=== PATIENT | female | born 1985 | race Caucasian/White ===

== ENCOUNTER 2016-11-10 22:44 | Emergency (ER) | payer SELFPAY ==
[~2016-11-10] VITALS: Ht 172.7 cm; Wt 89.0 kg
[2016-11-10 22:46] VITALS: BP 142/88; PULSE 125; RESP 18; TEMP 100.8; O2SAT 94
[2016-11-10] MEDS ORDERED: SODIUM CHLOR 0.9% 1000 ML INJ 1,000 ML IV ONE ×2 (23:16)
[2016-11-10] MEDS ORDERED: SODIUM CHLOR 0.9% 1000 ML INJ 700 ML IV ONE (23:16)
[2016-11-10] MEDS ORDERED: ACETAMINOPHEN 325 MG TAB PO ONE (23:30)
[2016-11-10 23:54] LABS: AUTOMATED NEUTROPHIL # 8.6 TH/MM3 (1.8-7.7); BASOPHIL % 0.3 % (0.0-2.0); EOSINOPHIL % 0.1 % (0.0-4.0); HEMATOCRIT 36.5 % (35.0-46.0); HEMO FLAGS DIFF FINAL; LYMPH % 2.3 % (9.0-44.0); LYMPHOCYTE # 0.2 TH/MM3 (1.0-4.8); MEAN CORPUSCULAR HEMOGLOBIN 28.2 PG (27.0-34.0); MEAN CORPUSCULAR HGB CONC 34.8 % (32.0-36.0); MONO % 3.9 % (0.0-8.0); NEUT % 93.4 % (16.0-70.0); PLATELET COUNT 268 TH/MM3 (150-450); RED CELL DISTRIBUTION WIDTH 13.5 % (11.6-17.2); WHITE BLOOD COUNT 9.3 TH/MM3 (4.0-11.0)
[2016-11-11] MEDS ORDERED: HYDROmorphone HCL PF 1 MG/ML VIAL IV PUSH ONE
[2016-11-11] MEDS ORDERED: ONDANSETRON HCL 4 MG/2 ML VIAL IV PUSH ONE
[2016-11-11] MEDS ORDERED: OSELTAMIVIR PHOSPHATE 75 MG CAP PO ONE (00:15)
[2016-11-11 00:27] LABS: ALT (GPT) 23 U/L (10-53); ANION GAP 11 MEQ/L (5-15); AST (GOT) 16 U/L (15-37); BICARBONATE 22.2 MEQ/L (21.0-32.0); BLOOD UREA NITROGEN 10 MG/DL (7-18); CHLORIDE 105 MEQ/L (98-107); GLOMERULAR FILTRATION RATE 97 ML/MIN (>89); POTASSIUM 3.7 MEQ/L (3.5-5.1); SODIUM (NA) 138 MEQ/L (136-145)
--- NOTE | 2016-11-11 00:27 | RADRPT ---
EXAM DATE/TIME: 11/10/2016 23:25 [facility] COMPARISON: No previous studies available for comparison. INDICATIONS : Fever, cough. MEDICAL HISTORY : None. SURGICAL HISTORY : None. ENCOUNTER: Initial ACUITY: 3 days PAIN SCORE: 0/10 LOCATION: Bilateral chest FINDINGS: A single view of the chest demonstrates the lungs to be symmetrically aerated without evidence of mas s, infiltrate or effusion. The cardiomediastinal contours are unremarkable. Osseous structures are intact. CONCLUSION: Normal examination for a patient of this age. Joe Farias MD on November 11, 2016 at 0:26 Board Certified Radiologist. This report was verified electronically.
[2016-11-11 00:29] LABS: ALKALINE PHOSPHATASE 71 U/L (45-117); TOTAL BILIRUBIN ADULT 0.4 MG/DL (0.2-1.0)
[2016-11-11] MEDS ORDERED: OSEL75 PO (00:39)
[2016-11-11] MEDS ORDERED: ZOFR4TAB3 SL (00:39)
--- NOTE | 2016-11-11 00:40 | PD ---
HPI Chief Complaint: Cold / Flu Symptoms Time Seen by Provider: 23:15 Travel History International Travel<30 days: No Contact w/Intl Traveler<30days: No Traveled to known affect area: No History of Present Illness HPI 31-year-old female arrives to the ER complaining of generalized malaise, generalized myalgias and arthralgias for about 1 day. She has vomited 3-4 times. Oral intake is decreased. She reports her daughter is sick at home with similar symptoms. She has had about 5 episodes of diarrhea nonbloody. [facility] Past Medical History Immunizations Current: Yes Influenza Vaccination: No ?: Unknown LMP: 10/11/2016 Past Surgical History Cholecystectomy: Yes Social History Alcohol Use: Yes (RARELY) Tobacco Use: No Substance Use: No Allergies-Medications (Allergen,Severity, Reaction): Coded Allergies: No Known Allergies (Unverified , 11/10/16) Reported Meds & Prescriptions Reported Meds & Active Scripts Active Zofran Odt (Ondansetron Odt) 4 Mg Tab 4 Mg SL Q8HR PRN Tamiflu (Oseltamivir Phosphate) 75 Mg Cap 75 Mg PO BID 7 Days Review of Systems Except as stated in HPI: all other systems reviewed are Neg Physical Exam Narrative GENERAL: 31-year-old female, well-nourished well-developed SKIN: Warm and dry. HEAD: Atraumatic. Normocephalic. EYES: Pupils equal and round. No scleral icterus. No injection or drainage. ENT: No nasal bleeding or discharge. Mucous membranes pink and moist. NECK: Trachea midline. No JVD. CARDIOVASCULAR: Tachycardia. Regular rhythm. RESPIRATORY: No accessory muscle use. Clear to auscultation. Breath sounds equal bilaterally. GASTROINTESTINAL: Abdomen soft, non-tender, nondistended. Hepatic and splenic margins not palpable. MUSCULOSKELETAL: No obvious deformities. No clubbing. No cyanosis. No edema. NEUROLOGICAL: Awake and alert. No obvious cranial nerve deficits. Motor grossly within normal limits. Normal speech. PSYCHIATRIC: Appropriate mood and affect; insight and judgment normal. Data Data Last Documented VS Vital Signs Date Time Temp Pulse Resp B/P Pulse Ox O2 Delivery O2 Flow Rate FiO2 11/10/16 22:46 100.8 125 18 142/88 94 Vital signs observed Orders Complete Blood Count With Diff (11/10/16 23:16) Comprehensive Metabolic Panel (11/10/16 23:16) Lactic Acid Sepsis Protocol (11/10/16 23:16) Urinalysis - C+S If Indicated (11/10/16 23:16) Influenzae A/B Antigen (11/10/16 23:16) Blood Culture (11/10/16 23:16) Chest, Single Ap (11/10/16 23:16) Blood Glucose (11/10/16 23:16) Ecg Monitoring (11/10/16 23:16) Iv Access Insert/Monitor (11/10/16 23:16) Oximetry (11/10/16 23:16) Oxygen Administration (11/10/16 23:16) Acetaminophen (Tylenol) (11/10/16 23:30) Sodium Chlor 0.9% 1000 Ml Inj (Ns 1000 M (11/10/16 23:16) Sodium Chlor 0.9% 1000 Ml Inj (Ns 1000 M (11/10/16 23:16) Sodium Chlor 0.9% 1000 Ml Inj (Ns 1000 M (11/10/16 23:16) Ed Poc Ultrasound (11/10/16 ) Hydromorphone Pf Inj (Dilaudid Pf Inj) (11/11/16 00:00) Ondansetron Inj (Zofran Inj) (11/11/16 00:00) Oseltamivir (Tamiflu) (11/11/16 00:15) Urine Culture (11/11/16 00:40) Labs Laboratory Tests Test 11/10/16 11/10/16 11/11/16 23:35 23:40 00:40 White Blood Count 9.3 TH/MM3 Red Blood Count 4.50 MIL/MM3 Hemoglobin 12.7 GM/DL Hematocrit 36.5 % Mean Corpuscular Volume 81.0 FL Mean Corpuscular Hemoglobin 28.2 PG Mean Corpuscular Hemoglobin 34.8 % Concent Red Cell Distribution Width 13.5 % Platelet Count 268 TH/MM3 Mean Platelet Volume 8.1 FL Neutrophils (%) (Auto) 93.4 % Lymphocytes (%) (Auto) 2.3 % Monocytes (%) (Auto) 3.9 % Eosinophils (%) (Auto) 0.1 % Basophils (%) (Auto) 0.3 % Neutrophils # (Auto) 8.6 TH/MM3 Lymphocytes # (Auto) 0.2 TH/MM3 Monocytes # (Auto) 0.4 TH/MM3 Eosinophils # (Auto) 0.0 TH/MM3 Basophils # (Auto) 0.0 TH/MM3 CBC Comment DIFF FINAL Differential Comment Sodium Level 138 MEQ/L Potassium Level 3.7 MEQ/L Chloride Level 105 MEQ/L Carbon Dioxide Level 22.2 MEQ/L Anion Gap 11 MEQ/L Blood Urea Nitrogen 10 MG/DL Creatinine 0.70 MG/DL Estimat Glomerular Filtration 97 ML/MIN Rate Random Glucose 119 MG/DL Calcium Level 8.6 MG/DL Total Bilirubin 0.4 MG/DL Aspartate Amino Transf 16 U/L (AST/SGOT) Alanine Aminotransferase 23 U/L (ALT/SGPT) Alkaline Phosphatase 71 U/L Total Protein 7.9 GM/DL Albumin 3.8 GM/DL Lactic Acid Level 1.3 mmol/L Urine Color YELLOW Urine Turbidity CLEAR Urine pH 5.5 Urine Specific [place] 1.021 Urine Protein NEG mg/dL Urine Glucose (UA) NEG mg/dL Urine Ketones NEG mg/dL Urine Occult Blood NEG Urine Nitrite NEG Urine Bilirubin NEG Urine Urobilinogen LESS THAN 2.0 MG/DL Urine Leukocyte Esterase NEG Urine RBC 1 /hpf Urine WBC 1 /hpf Urine Squamous Epithelial 1 /hpf Cells Urine Bacteria RARE /hpf Urine Mucus FEW /lpf Microscopic Urinalysis Comment CATH-CULTURE IND MDM Medical Decision Making Medical Screen Exam Complete: Yes Emergency Medical Condition: Yes Medical Record Reviewed: Yes Differential Diagnosis Sepsis, influenza, pneumonia, UTI, intrauterine Narrative Course CBC & BMP Diagram 11/10/16 23:35 Lactic acid 1.3 LFTs normal Neutrophils 93% Influenza assay positive for flu A antigen Patient has received IV fluids and Tylenol. She has influenza. We will prescribe Tamiflu and Zofran. She is ready for discharge. Diagnosis Primary Impression: Influenza Referrals: Primary Care Physician 2 days Additional Instructions: You have a choice when it comes to health care, and we are glad that you chose [facility]. Hopefully, we have met your expectations on today's visit. You are welcome to return to [facility] at any time, as we are committed to meeting the health care needs of our community. Med/Other Pt SpecificInfo: Prescription(s) given Scripts Ondansetron Odt (Zofran Odt)4 Mg Tab4 Mg SL Q8HR PRN (Nausea/Vomiting) #10 TAB Ref 0 Prov:Gee Nur MD 11/11/16 Oseltamivir (Tamiflu)75 Mg Cap75 Mg PO BID 7 Days Ref 0 Prov:Gee Nur MD 11/11/16 Disposition: 01 DISCHARGE HOME Condition: Stable Gee Nur MD Nov 11, 2016 00:39
[2016-11-11 00:55] LABS: BACTERIA, URINE RARE /hpf; BLOOD, URINE NEG (NEG); COMMENT (UR) CATH-CULTURE IND; CULTURE IF INDICATED CATH CULTURE IND; GLUCOSE,URINE NEG (NEG); KETONE, URINE NEG (NEG); MUCUS URINE FEW /lpf (OCC); NITRITE,URINE NEG (NEG); PH, URINE 5.5 (5.0-8.5); SQUAMOUS EPITHELIAL CELL URINE 1 /hpf (0-5); URINE COLOR YELLOW (YELLW/STRAW)
== END 2016-11-11 01:52 | disposition home or self-care (01) ==
LOC: NEPC 22:44
DX: J09.X2 Influenza due to identified novel influenza A virus with other respiratory manifestations (principal)
CPT/HCPCS: 71010; 80053; 81001; 83605; 85025; 87040; 87086; 87804; 96374; 96375; 99284; J1170; J2405; J7030

== ENCOUNTER 2017-03-08 04:10 | Emergency (ER) | payer MEDICAID, OTHER ==
[~2017-03-08] VITALS: Ht 162.6 cm; Wt 118.0 kg
[~2017-03-08 04:10] MED LIST: OSEL75 PO; ZOFR4TAB3 SL
[2017-03-08 04:13] VITALS: BP 136/96; PULSE 112; RESP 18; TEMP 98.6; O2SAT 99
--- NOTE | 2017-03-08 04:55 | PD ---
HPI Chief Complaint: Cold / Flu Symptoms Time Seen by Provider: 04:49 Travel History International Travel<30 days: No Contact w/Intl Traveler<30days: No Traveled to known affect area: No History of Present Illness HPI 31-year-old female with history of no significant past medical issues, presents to the ER with 1 week history of cough, congestion, sore throat, body aches. She states that her daughter had similar symptoms but is already recovering. She denies any vomiting, shortness of breath, chest pains, or any other symptoms. Modifying Factors: None Associated Signs & Symptoms: Coughing, congestion, sore throat, body aches for one week Risk Factors: Sick contacts PFSH Past Medical History GERD: Yes Immunizations Current: Yes Tetanus Vaccination: > 5 Years Influenza Vaccination: No ?: Not LMP: 03-06-17 : 3 Para: 3 Past Surgical History Cholecystectomy: Yes Social History Alcohol Use: Yes (RARELY) Tobacco Use: No Substance Use: No Allergies-Medications (Allergen,Severity, Reaction): Coded Allergies: No Known Allergies (Unverified , 03/08/17) Reported Meds & Prescriptions Reported Meds & Active Scripts Active No Active Prescriptions or Reported Medications Review of Systems Except as stated in HPI: all other systems reviewed are Neg Physical Exam Narrative GENERAL: Well-developed young white female patient currently in mild distress awake and oriented 3. SKIN: Focused skin assessment warm/dry. HEAD: Atraumatic. Normocephalic. EYES: Pupils equal and round. No scleral icterus. No injection or drainage. ENT: No nasal bleeding or discharge. Mucous membranes pink and moist. Mild pharyngeal erythema with no significant exudates. Tonsillar pillars are symmetrical. NECK: Trachea midline. No JVD. CARDIOVASCULAR: Regular rate and rhythm. No murmur appreciated. RESPIRATORY: No accessory muscle use. Clear to auscultation. Breath sounds equal bilaterally. GASTROINTESTINAL: Abdomen soft, non-tender, nondistended. Hepatic and splenic margins not palpable. MUSCULOSKELETAL: No obvious deformities. No clubbing. No cyanosis. No edema. NEUROLOGICAL: Awake and alert. No obvious cranial nerve deficits. Motor grossly within normal limits. Normal speech. PSYCHIATRIC: Appropriate mood and affect; insight and judgment normal. Data Data Last Documented VS Vital Signs Date Time Temp Pulse Resp B/P Pulse Ox O2 Delivery O2 Flow Rate FiO2 03/08/17 04:26 22 100 03/08/17 04:13 98.6 112 136/96 Orders Chest, Single Ap (03/08/17 04:49) Soft Tissue Neck (03/08/17 ) Influenzae A/B Antigen (03/08/17 04:49) Ed Urine Pregnancytest Poc (03/08/17 04:49) Albuterol Neb (Albuterol Neb) (03/08/17 06:00) MDM Medical Decision Making Medical Screen Exam Complete: Yes Emergency Medical Condition: Yes Medical Record Reviewed: Yes Interpretation(s) Last 24 hours Impressions Chest X-Ray 03/08/17 0449 Signed Impressions: Service Date/Time: Wednesday, March 08, 2017 05:06 - CONCLUSION: 1. No active disease. Mild scoliosis. Pepito Cueto MD Soft Tissue Neck X-Ray 03/08/17 0000 Signed Impressions: Service Date/Time: Wednesday, March 08, 2017 05:07 - CONCLUSION: Normal examination for a patient of this age. Pepito Cueto MD Differential Diagnosis Cough, cold symptoms, body achesinfluenza versus URI versus bronchitis versus peritonsillar abscess versus epiglottitis Narrative Course Chest x-ray did not show any signs of acute pulmonary processes and soft tissue neck x-rays did not show any signs of acute issues. Influenza test is negative. Vital signs are stable in the ER. At this point, my plan would be to release the patient with symptomatic relief. Follow-up with primary care physician as needed. The plan has been discussed with her and she states understanding. Diagnosis Primary Impression: Viral syndrome Additional Impression: Bronchitis Med/Other Pt SpecificInfo: Prescription(s) given Scripts Albuterol 6.7 GM Inh (Proventil Hfa 6.7 GM Inh)90 Mcg/Act Aer2 Puff INH Q4-6H PRN (SHORTNESS OF BREATH) #1 INHALER Ref 0 Prov:Adolph Guthrie MD 03/08/17 Benzonatate (Tessalon Perles)100 Mg [id number] Mg PO TID PRN (COUGH) #15 CAP Ref 0 Prov:Adolph Guthrie MD 03/08/17 Disposition: 01 DISCHARGE HOME Condition: Stable Adolph Guthrie MD March 08, 2017 04:55
--- NOTE | 2017-03-08 05:15 | RADRPT ---
EXAM DATE/TIME: 03/08/2017 05:07 [facility] COMPARISON: No previous studies available for comparison. INDICATIONS : Cough, sore throat. MEDICAL HISTORY : None. SURGICAL HISTORY : None. ENCOUNTER: Initial ACUITY: 1 week PAIN SCORE: 3/10 LOCATION: neck FINDINGS: Two view examination of the soft tissues of the neck demonstrates the hypopharyngeal airway to have a grossly normal configuration. The trachea is midline. No radiopaque foreign bodies are seen. CONCLUSION: Normal examination for a patient of this age. Pepito Cueto MD on March 08, 2017 at 5:12 Board Certified Radiologist. This report was verified electronically.
--- NOTE | 2017-03-08 05:30 | RADRPT ---
EXAM DATE/TIME: 03/08/2017 05:06 [facility] COMPARISON: No previous studies available for comparison. INDICATIONS : Cough. MEDICAL HISTORY : None. SURGICAL HISTORY : None. ENCOUNTER: Initial ACUITY: 1 week PAIN SCORE: 0/10 LOCATION: Bilateral chest FINDINGS: A single view of the chest demonstrates the lungs to be symmetrically aerated without evidence of mas s, infiltrate or effusion. The cardiomediastinal contours are unremarkable. Osseous structures are intact. CONCLUSION: 1. No active disease. Mild scoliosis. Pepito Cueto MD on March 08, 2017 at 5:22 Board Certified Radiologist. This report was verified electronically.
[2017-03-08] MEDS ORDERED: BENZ100 PO (05:59)
[2017-03-08] MEDS ORDERED: ALBU6.7H INH (05:59)
[2017-03-08] MEDS ORDERED: RESP: ALBUTEROL 2.5 MG/3 ML NEB (SCH) INH ONE (06:00)
== END 2017-03-08 06:40 | disposition home or self-care (01) ==
LOC: NEPC 04:10
DX: B34.9 Viral infection, unspecified (principal); J40 Bronchitis, not specified as acute or chronic
CPT/HCPCS: 70360; 71010; 84703; 87804; 94664; 99283; J7613

== ENCOUNTER 2017-04-06 22:27 | Emergency (ER) | payer MEDICAID ==
[~2017-04-06] VITALS: Ht 162.6 cm; Wt 118.0 kg
[~2017-04-06 22:27] MED LIST changes: +ALBU6.7H INH; +BENZ100 PO; -OSEL75 PO; -ZOFR4TAB3 SL
[2017-04-06 22:29] VITALS: BP 174/97; PULSE 108; RESP 18; TEMP 98.8; O2SAT 98
[2017-04-06 23:30] VITALS: O2SAT 98
[2017-04-06 23:34] VITALS: BP 157/89; PULSE 77; RESP 16; O2SAT 98
[2017-04-06 23:55] LABS: AUTOMATED NEUTROPHIL # 7.5 TH/MM3 (1.8-7.7); BASOPHIL # 0.1 TH/MM3 (0-0.2); BASOPHIL % 0.5 % (0.0-2.0); EOSINOPHIL # 0.3 TH/MM3 (0-0.4); EOSINOPHIL % 2.9 % (0.0-4.0); HEMATOCRIT 38.1 % (35.0-46.0); HEMO FLAGS DIFF FINAL; LYMPH % 23.2 % (9.0-44.0); LYMPHOCYTE # 2.6 TH/MM3 (1.0-4.8); MEAN CELL VOLUME 81.9 FL (80.0-100.0); MEAN CORPUSCULAR HEMOGLOBIN 26.9 PG (27.0-34.0); MEAN CORPUSCULAR HGB CONC 32.9 % (32.0-36.0); MONO % 5.5 % (0.0-8.0); NEUT % 67.9 % (16.0-70.0); PLATELET COUNT 289 TH/MM3 (150-450); RED BLOOD COUNT 4.66 MIL/MM3 (4.00-5.30); WHITE BLOOD COUNT 11.1 TH/MM3 (4.0-11.0)
[2017-04-07 00:04] LABS: ANION GAP 9 MEQ/L (5-15); AST (GOT) 14 U/L (15-37); BICARBONATE 24.1 MEQ/L (21.0-32.0); BLOOD UREA NITROGEN 11 MG/DL (7-18); CHLORIDE 106 MEQ/L (98-107); GLOMERULAR FILTRATION RATE 120 ML/MIN (>89); MAGNESIUM 1.9 MG/DL (1.5-2.5); POTASSIUM 3.3 MEQ/L (3.5-5.1); SODIUM (NA) 139 MEQ/L (136-145)
[2017-04-07 00:05] LABS: ALT (GPT) 23 U/L (10-53)
[2017-04-07 00:07] LABS: ALKALINE PHOSPHATASE 71 U/L (45-117); TOTAL BILIRUBIN ADULT 0.3 MG/DL (0.2-1.0)
[2017-04-07 00:13] LABS: APTT (PATIENT) 27.6 SEC (24.3-30.1); PROTHROMBIN TIME - PATIENT 10.9 SEC (9.8-11.6)
--- NOTE | 2017-04-07 00:28 | PD ---
HPI Chief Complaint: GI Complaint Time Seen by Provider: 23:24 Travel History International Travel<30 days: No Contact w/Intl Traveler<30days: No Traveled to known affect area: No History of Present Illness HPI The patient is a 32 year old female who presents to the [facility] emergency department with a history of 2 days of blood in toilet with moving her bowels intermittently. Today, she began to have a stabbing pain that comes and goes in the right lower quadrant with a constant aching in that area at baseline. She has had nausea without vomiting. She has had diarrhea 2-3 days ago. She has had diarrhea 5-6 x today. She denies having any known blood in her stool. She denies any recent antibiotic use or sick contacts. The only new thing that has happened recently is she reports that she received a Depo shot for the first time on Friday. The patient denies any recent fevers, cough, congestion, neck pain, chest pain, shortness of breath, urinary symptoms , or neurologic symptoms. LMP: 5 weeks ago [facility] Past Medical History Narrative Medical The patient's past medical history is reportedly none. Medical History: Denies Significant Hx GERD: Yes Immunizations Current: Yes Tetanus Vaccination: < 5 Years Influenza Vaccination: No ?: Not LMP: 5 WEEKS (ON DEPO SHOT) : 3 Para: 3 Past Surgical History Narrative Surgical The patient's past surgical history is significant for a cholecystectomy. Cholecystectomy: Yes Social History Alcohol Use: Yes (RARELY) Tobacco Use: No (QUIT 10yr AGO) Substance Use: No Allergies-Medications (Allergen,Severity, Reaction): Coded Allergies: No Known Allergies (Unverified , 04/06/17) Reported Meds & Prescriptions Reported Meds & Active Scripts Active No Active Prescriptions or Reported Medications Review of Systems Except as stated in HPI: all other systems reviewed are Neg General / Constitutional: No: Fever Eyes: No: Visual changes HENT: No: Headaches Cardiovascular: No: Chest Pain or Discomfort Respiratory: No: Shortness of Breath Gastrointestinal: Positive: Nausea, Diarrhea, Abdominal Pain, Hematochezia, Changes in Bowel Habits, No: Vomiting, Hematemesis, Constipation, Indigestion, Loss of Appetite Genitourinary: No: Dysuria Musculoskeletal: No: Pain Skin: No Rash Neurologic: No: Weakness Psychiatric: No: Depression Endocrine: No: Polydipsia Hematologic/Lymphatic: No: Easy Bruising Physical Exam Narrative General: The patient is a well-developed well-nourished female in no acute distress. Head and Neck exam: Head is normocephalic atraumatic. Eyes: EOMI, pupils are equal round and reactive to light. Nose: Midline septum with pink mucous membranes Mouth: Dentition unremarkable. Moist mucus membranes. Posterior oropharynx is not erythematous. No tonsillar hypertrophy. Uvula midline. Airway patent. Neck: No palpable lymphadenopathy. No nuchal rigidity. No thyromegaly. Cardiovascular: Regular rate and rhythm without murmurs, gallops, or rubs. Lungs: Clear to auscultation bilaterally. No wheezes, rhonchi, or rales. Abdomen: Soft, with tenderness on palpation along the right upper quadrant and right lateral mid abdomen. No other tenderness on palpation of the other quadrants of the abdomen No guarding, rebound, or rigidity. Normal bowel sounds are audible. No tenderness on palpation of McBurney's point. Negative Baltazar's sign. Extremities: No clubbing, cyanosis, or edema. 2+ pulses in all 4 extremities. Back: No costovertebral angle tenderness to palpation. Neurologic Exam: Grossly nonfocal. Skin Exam: No rash noted. Intact skin that is warm and dry. RECTAL EXAM: No masses or tenderness, no stool is present in the rectal vault. A scant amount of bloody mucus was noted. No anal fissures are noted. Data Data Last Documented VS Vital Signs Date Time Temp Pulse Resp B/P Pulse Ox O2 Delivery O2 Flow Rate FiO2 04/06/17 23:34 77 16 157/89 98 Room Air 04/06/17 22:29 98.8 Orders Complete Blood Count With Diff (04/06/17 23:25) Comprehensive Metabolic Panel (04/06/17 23:25) Prothrombin Time / Inr (Pt) (04/06/17 23:25) Act Partial Throm Time (Ptt) (04/06/17 23:25) Lipase (04/06/17 23:25) Urinalysis - C+S If Indicated (04/06/17 23:25) Westergren Sedimentation Rate (04/06/17 23:25) Magnesium (Mg) (04/06/17 23:25) Ct Abd/Pel W Iv Contrast(Rout) (04/06/17 23:25) Iv Access Insert/Monitor (04/06/17 23:25) Ecg Monitoring (04/06/17 23:25) Oximetry (04/06/17 23:25) Type And Screen (04/06/17 23:25) Ed Urine Pregnancytest Poc (04/06/17 23:25) Sodium Chlor 0.9% 1000 Ml Inj (Ns 1000 M (04/07/17 00:45) Ondansetron Inj (Zofran Inj) (04/07/17 00:45) Ketorolac Inj (Toradol Inj) (04/07/17 00:45) Urine Culture (04/07/17 00:00) Potassium Chloride (Kcl) (04/07/17 01:30) Ceftriaxone Inj (Rocephin Inj) (04/07/17 01:45) Labs Laboratory Tests Test 04/06/17 04/07/17 23:35 00:00 White Blood Count 11.1 TH/MM3 Red Blood Count 4.66 MIL/MM3 Hemoglobin 12.5 GM/DL Hematocrit 38.1 % Mean Corpuscular Volume 81.9 FL Mean Corpuscular Hemoglobin 26.9 PG Mean Corpuscular Hemoglobin 32.9 % Concent Red Cell Distribution Width 14.0 % Platelet Count 289 TH/MM3 Mean Platelet Volume 8.1 FL Neutrophils (%) (Auto) 67.9 % Lymphocytes (%) (Auto) 23.2 % Monocytes (%) (Auto) 5.5 % Eosinophils (%) (Auto) 2.9 % Basophils (%) (Auto) 0.5 % Neutrophils # (Auto) 7.5 TH/MM3 Lymphocytes # (Auto) 2.6 TH/MM3 Monocytes # (Auto) 0.6 TH/MM3 Eosinophils # (Auto) 0.3 TH/MM3 Basophils # (Auto) 0.1 TH/MM3 CBC Comment DIFF FINAL Differential Comment Erythrocyte Sedimentation Rate 34 mm/hr Prothrombin Time 10.9 SEC Prothromb Time International 1.0 RATIO Ratio Activated Partial 27.6 SEC Thromboplast Time Sodium Level 139 MEQ/L Potassium Level 3.3 MEQ/L Chloride Level 106 MEQ/L Carbon Dioxide Level 24.1 MEQ/L Anion Gap 9 MEQ/L Blood Urea Nitrogen 11 MG/DL Creatinine 0.58 MG/DL Estimat Glomerular Filtration 120 ML/MIN Rate Random Glucose 107 MG/DL Calcium Level 8.9 MG/DL Magnesium Level 1.9 MG/DL Total Bilirubin 0.3 MG/DL Aspartate Amino Transf 14 U/L (AST/SGOT) Alanine Aminotransferase 23 U/L (ALT/SGPT) Alkaline Phosphatase 71 U/L Total Protein 7.9 GM/DL Albumin 3.8 GM/DL Lipase 126 U/L Blood Type AB NEGATIVE Antibody Screen NEGATIVE Blood Bank Comment Urine Color YELLOW Urine Turbidity HAZY Urine pH 5.5 Urine Specific [place] 1.033 Urine Protein 30 mg/dL Urine Glucose (UA) NEG mg/dL Urine Ketones NEG mg/dL Urine Occult Blood NEG Urine Nitrite NEG Urine Bilirubin NEG Urine Urobilinogen LESS THAN 2.0 MG/DL Urine Leukocyte Esterase LARGE Urine RBC 2 /hpf Urine WBC 11 /hpf Urine Squamous Epithelial 21 /hpf Cells Urine Calcium Oxalate Crystals MOD /hpf Urine Bacteria MANY /hpf Urine Mucus MOD /lpf Microscopic Urinalysis Comment CULTURE INDICATED MDM Medical Decision Making Medical Screen Exam Complete: Yes Emergency Medical Condition: Yes Medical Record Reviewed: Yes Interpretation(s) Last Impressions Abdomen/Pelvis CT 04/06/17 7835 Signed Impressions: Service Date/Time: Friday, April 07, 2017 01:10 - CONCLUSION: 1. No acute abnormality. 2. Small umbilical hernia containing fat only. José Miguel Calvillo MD Differential Diagnosis Acute appendicitis, versus ovarian cyst, versus viral syndrome, versus mesenteric adenitis Narrative Course During the course of the patients emergency department visit, the patients history, examination, and differential diagnosis were reviewed with the patient. The patient had IV access obtained and blood work sent for analysis. The patient was placed on a drywall worker with oximetry and blood pressure monitoring. The patient was initially provided normal saline 1 L IV fluid bolus, Zofran 4 mg IV, Toradol 15 mg IV. The patients laboratory studies were reviewed and remarkable for a white count of 11.1, hemoglobin 12.5, platelets 289 with a normal differential, sedimentation rate is 34. CMP is remarkable for potassium of 3.3 which was supplemented orally, glucose 107, AST 14, PT PTT within normal limits. Urinalysis shows 30 protein large leukocyte esterase 11 wbc's, 2 rbc's, moderate calcium oxalate crystals, bacteria many. Culture indicated. The patient was given Rocephin 1 g IV. Radiology studies were reviewed and remarkable for a CT scan of the abdomen and pelvis that shows no acute abnormality. The patient has a small umbilical hernia containing fat only. The patient was instructed that if the blood in her stool continues, she should follow-up with a installer apprentice for consideration of a colonoscopy. She is given the name of the installer apprentice on-call, Dr. Alarcon. The patient is resting comfortably and feels better, is alert and in no distress. The patients results and examination findings were discussed with the patient. The repeat examination is unremarkable and benign. The history, exam, diagnostic testing, and current condition do not suggest any significant pathology to warrant further testing, continued ED treatment, admission, or surgical evaluation at this point. The vital signs have been stable. The patient does not have uncontrollable pain, intractable vomiting, or other significant symptoms. The patient's condition is stable and appropriate for discharge. The patient will pursue further outpatient evaluation with a primary care physician or other designated or consulting physician as indicated in the discharge instructions. The patient expressed understanding and was agreeable with this plan. Diagnosis Primary Impression: Abdominal pain Qualified Code: R10.11 - Right upper quadrant abdominal pain Additional Impressions: Blood in stool Urinary tract infection Qualified Code: N39.0 - Urinary tract infection without hematuria, site unspecified Referrals: Vicotrino Alarcon MD 1 week Patient Instructions: Abdominal Pain (ED), General Instructions, Urinary Tract Infection in Women (ED) Med/Other Pt SpecificInfo: Prescription(s) given Scripts No Active Prescriptions or Reported Meds Disposition: 01 DISCHARGE HOME Condition: Stable Tamara Miguel MD Apr 07, 2017 00:28
[2017-04-07] MEDS ORDERED: SODIUM CHLOR 0.9% 1000 ML INJ 1,000 ML IV ONE (00:45)
[2017-04-07] MEDS ORDERED: ONDANSETRON HCL 4 MG/2 ML VIAL IV ONE (00:45)
[2017-04-07] MEDS ORDERED: KETOROLAC TROMETHAMINE 30 MG/ML (IVP) VIAL IV PUSH ONE (00:45)
[2017-04-07 01:08] LABS: BACTERIA, URINE MANY /hpf; BLOOD, URINE NEG (NEG); CALCIUM OXALATE CRYSTALS,URINE MOD /hpf; COMMENT (UR) CULTURE INDICATED; CULTURE IF INDICATED CULTURE INDICATED; GLUCOSE,URINE NEG (NEG); KETONE, URINE NEG (NEG); MUCUS URINE MOD /lpf (OCC); NITRITE,URINE NEG (NEG); PH, URINE 5.5 (5.0-8.5); SQUAMOUS EPITHELIAL CELL URINE 21 /hpf (0-5); URINE COLOR YELLOW (YELLW/STRAW)
[2017-04-07] MEDS ORDERED: IOHEXOL 350 MG/ML 10 ML VIAL (for RAD DIAG) IV ONE (01:10)
[2017-04-07] MEDS ORDERED: POTASSIUM CHLORIDE 20 MEQ CONTROLLED RELEASE TAB PO ONE (01:30)
--- NOTE | 2017-04-07 01:35 | RADRPT ---
EXAM DATE/TIME: 04/07/2017 01:10 [facility] COMPARISON: No previous studies available for comparison. INDICATIONS : Right lower quadrant pain with nausea and diarrhea. IV CONTRAST: 96 cc Omnipaque 350 (iohexol) IV ORAL CONTRAST: No oral contrast ingested. RADIATION DOSE: 24.77 CTDIvol (mGy) MEDICAL HISTORY : Gastroesophageal reflux disease. SURGICAL HISTORY : Cholecystectomy. ENCOUNTER: Initial ACUITY: 2 days PAIN SCALE: 8/10 LOCATION: Right lower quadrant TECHNIQUE: Volumetric scanning of the abdomen and pelvis was performed. Using automated exposure control and ad justment of the mA and/or kV according to patient size, radiation dose was kept as low as reasonably achievable to obtain optimal diagnostic quality images. FINDINGS: LOWER LUNGS: The visualized lower lungs are clear. LIVER: Homogeneous density without lesion. There is no dilation of the biliary tree. Previous cholecystecto my. SPLEEN: Normal size without lesion. PANCREAS: Within normal limits. KIDNEYS: Normal in size and shape. There is no mass, stone or hydronephrosis. ADRENAL GLANDS: Within normal limits. VASCULAR: There is no aortic aneurysm. BOWEL/MESENTERY: The stomach, small bowel, and colon demonstrate no acute abnormality. There is no free intraperitone al air or fluid. Appendix is well-visualized, normal. ABDOMINAL WALL: Small fat containing umbilical hernia noted. RETROPERITONEUM: There is no lymphadenopathy. BLADDER: No wall thickening or mass. REPRODUCTIVE: Within normal limits. INGUINAL: There is no lymphadenopathy or hernia. MUSCULOSKELETAL: No acute bony abnormality demonstrated. CONCLUSION: 1. No acute abnormality. 2. Small umbilical hernia containing fat only. José Miguel Calvillo MD on April 07, 2017 at 1:31 Board Certified Radiologist. This report was verified electronically.
[2017-04-07] MEDS ORDERED: cefTRIAXone INJ 1,000 MG in SODIUM CHLORIDE 0.9% INJ 100 ML IV ONE (01:45)
[2017-04-07] MEDS ORDERED: ZOFR4TAB3 SL (02:00)
[2017-04-07] MEDS ORDERED: BACT800T5 PO (02:00)
== END 2017-04-07 02:32 | disposition home or self-care (01) ==
LOC: NEPE 22:27
DX: R10.31 Right lower quadrant pain (principal); K92.1 Melena; N39.0 Urinary tract infection, site not specified; K42.9 Umbilical hernia without obstruction or gangrene; R11.0 Nausea; R19.7 Diarrhea, unspecified; K21.9 Gastro-esophageal reflux disease without esophagitis; Z87.891 Personal history of nicotine dependence
CPT/HCPCS: 74177; 80053; 81001; 83690; 83735; 84703; 85025; 85610; 85652; 85730; 86850; 86900; 86901; 87086; 96374; 96375; 99285; J0696; J1885; J2405; J7030; Q9967

== ENCOUNTER 2017-06-09 16:21 | Emergency (ER) | payer OTHER ==
[~2017-06-09] VITALS: Ht 162.6 cm; Wt 120.0 kg
[~2017-06-09 16:21] MED LIST changes: -ALBU6.7H INH; +BACT800T5 PO; -BENZ100 PO; +ZOFR4TAB3 SL
[2017-06-09 16:34] VITALS: BP 165/105; PULSE 99; RESP 20; TEMP 98.8; O2SAT 99
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
[2017-06-09] MEDS ORDERED: IBUPROFEN 800 MG TAB PO ONE (17:45)
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
[2017-06-09] MEDS ORDERED: ACETAMINOPHEN/CODEINE 300 MG/30 MG TAB PO ONE (19:15)
[2017-06-09] MEDS ORDERED: ORPHENADRINE INJ 60 MG/2 ML AMP IM ONE (19:15)
[2017-06-09] MEDS ORDERED: IBUP800T23 PO (19:16)
[2017-06-09] MEDS ORDERED: BACL10TA PO (19:16)
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
[2017-06-09] MEDS ORDERED: ZOFR4TAB PO (20:39)
[2017-06-09] MEDS ORDERED: ONDANSETRON ODT 4 MG TAB PO ONE (20:45)
== END 2017-06-09 21:15 | disposition home or self-care (01) ==
LOC: NEPK 16:21
DX: S39.012A Strain of muscle, fascia and tendon of lower back, initial encounter (principal); S16.1XXA Strain of muscle, fascia and tendon at neck level, initial encounter; R51 Headache; V43.52XA Car driver injured in collision with other type car in traffic accident, initial encounter; K21.9 Gastro-esophageal reflux disease without esophagitis
CPT/HCPCS: 70450; 71010; 72100; 72125; 72170; 96372; 99285; J2360; L0150

== ENCOUNTER 2017-11-26 09:29 | Emergency (ER) | payer MEDICAID ==
[~2017-11-26] VITALS: Ht 162.6 cm; Wt 111.0 kg
[~2017-11-26 09:29] MED LIST changes: +BACL10TA PO; +IBUP1TAB7 PO; +ZOFR4TAB PO
[2017-11-26 09:30] VITALS: BP 131/97; PULSE 95; RESP 20; TEMP 98.5; O2SAT 97
[2017-11-26] MEDS ORDERED: ACETAMINOPHEN/HYDROcodone 325 MG/10 MG TAB PO ONE (09:45)
[2017-11-26] MEDS ORDERED: AMOXICILLIN/CLAVULANATE K 875 MG TAB PO ONE (09:45)
[2017-11-26] MEDS ORDERED: TETANUS/DIPHTHERIA TOXOID ADULT 0.5 ML VIAL IM ONE (09:45)
[2017-11-26] MEDS ORDERED: HYDR-3516 PO (09:58)
[2017-11-26] MEDS ORDERED: DICL75TA PO (09:58)
[2017-11-26] MEDS ORDERED: AUGM875T3 PO (09:58)
--- NOTE | 2017-11-26 10:18 | RADRPT ---
EXAM DATE/TIME: 11/26/2017 10:03 [facility] COMPARISON: No previous studies available for comparison. INDICATIONS : Left hand pain, dog bite. MEDICAL HISTORY : None. SURGICAL HISTORY : None. ENCOUNTER: Initial ACUITY: 1 day PAIN SCORE: 8/10 LOCATION: Left hand, second and third metacarpals FINDINGS: Three view examination of the left hand demonstrates no soft tissue swelling, dislocation, or fractur e. The carpal bones appear intact. The interphalangeal and metacarpophalangeal joints are intact. Bony mineralization is normal. CONCLUSION: No fracture or radiopaque foreign body. Maninder Jose MD FACR on November 26, 2017 at 10:16 Board Certified Radiologist. This report was verified electronically.
--- NOTE | 2017-11-26 10:23 | PD ---
HPI Chief Complaint: Bite or Sting Time Seen by Provider: 09:38 Travel History International Travel<30 days: No Contact w/Intl Traveler<30days: No Traveled to known affect area: No History of Present Illness HPI 32-year-old female that presents to the ED for evaluation of a bite to her left hand. Per patient as well as done by her own doctor. Per patient she is aware that the dog is fully vaccinated. She denies any other medical issues. Per patient she was belted today while trying to move the dog. Per patient she has a superficial puncture wound to the dorsal aspect of the left hand. She is able to move all fingers but she is 10 out of 10 pain in the hand. She is concerned about possible infection from the dog bite. Denies any numbness, tilling, weakness. Allergies to different medications. Denies any urinary or bowel movement issues. No fevers chills or sweats. She does not know when her last tetanus shot was done. This injury occurred about 2 hours ago. No other medical issues. PFSH Past Medical History GERD: Yes Immunizations Current: Yes ?: Not : 3 Para: 3 Past Surgical History Cholecystectomy: Yes Social History Alcohol Use: Yes (RARELY) Tobacco Use: No (QUIT 10yr AGO) Substance Use: No Allergies-Medications (Allergen,Severity, Reaction): Coded Allergies: No Known Allergies (Unverified Allergy, Unknown, 11/26/17) acetaminophen (Verified Adverse Reaction, Severe, TACHYCARDIA, 11/26/17) codeine (Verified Adverse Reaction, Severe, TACHYCARDIA, 11/26/17) morphine (Verified Adverse Reaction, Unknown, DOESNT WORK, 11/26/17) Reported Meds & Prescriptions Reported Meds & Active Scripts Active Diclofenac Sodium DR (Diclofenac Sodium) 75 Mg Tabdr 75 Mg PO BID PRN Hydrocodone-Acetamin 5-325 mg (Hydrocodone/Acetaminophen) 5 Mg-325 Mg Tablet 1 Tab PO Q6HR PRN Augmentin (Amoxicillin-Clavulanate) 875-125 Mg Tab 1 Tab PO BID 7 Days Zofran (Ondansetron HCl) 4 Mg Tab 4 Mg PO Q6HR PRN Ibuprofen 800 Mg Tab 800 Mg PO Q6HR PRN Baclofen 10 Mg Tab 10 Mg PO Q8HR PRN 10 Days Zofran Odt (Ondansetron Odt) 4 Mg Tab 4 Mg SL Q6HR PRN Bactrim DS (Sulfamethoxazole-Trimethoprim) 800-160 Mg Tab 1 Tab PO BID Review of Systems Except as stated in HPI: all other systems reviewed are Neg Physical Exam Narrative GENERAL: SKIN: Warm and dry. HEAD: Atraumatic. Normocephalic. EYES: Pupils equal and round. No scleral icterus. No injection or drainage. ENT: No nasal bleeding or discharge. Mucous membranes pink and moist. NECK: Trachea midline. No JVD. CARDIOVASCULAR: Regular rate and rhythm. RESPIRATORY: No accessory muscle use. Clear to auscultation. Breath sounds equal bilaterally. GASTROINTESTINAL: Abdomen soft, non-tender, nondistended. Hepatic and splenic margins not palpable. MUSCULOSKELETAL: Extremities without clubbing, cyanosis, or edema. No obvious deformities. Full range of motion of all fingers and of the entire left hand. Good capillary refill. 2+ pulses bilaterally. Patient does have puncture wound to the dorsal aspect of the hand right above the second and third metacarpals. Very superficial and well approximated. No erythema or mass. Slight bruising noted. NEUROLOGICAL: Awake and alert. No obvious cranial nerve deficits. Motor grossly within normal limits. Five out of 5 muscle strength in the arms and legs. Normal speech. PSYCHIATRIC: Appropriate mood and affect; insight and judgment normal. Data Data Last Documented VS Vital Signs Date Time Temp Pulse Resp B/P (MAP) Pulse Ox O2 Delivery O2 Flow Rate FiO2 11/26/17 09:30 98.5 95 20 131/97 (108) 97 Room Air Orders Orders Hand, Complete (Xio0sls) (11/26/17 09:41) Ice/Cold Pack (11/26/17 09:41) Acetamin-Hydrocod 325-10 Mg ([place] 10-32 (11/26/17 09:45) Amoxicil-Clavulanate (Augmentin) (11/26/17 09:45) Tetanus/Diphtheria Tox Adult (Tetanus/Di (11/26/17 09:45) MDM Medical Decision Making Medical Screen Exam Complete: Yes Emergency Medical Condition: Yes Medical Record Reviewed: Yes Interpretation(s) X-ray of the left hand show no sign of bony injury or deformity. Differential Diagnosis Dogbite versus puncture wound versus laceration versus fracture Narrative Course 32-year-old female that presents to the ED for evaluation of dog bite to the left hand. Patient was properly examined and was found to have signs and symptoms consistent appears to be superficial dog bite. X-ray was ordered Rocephin of bony injury. Patient was reassured. Patient is not concern for rabies as she was bit by her own dog and she is aware that the dog is fully vaccinated. Patient herself isn't sure for tetanus booster so she will be given a tetanus booster today as I cannot find records that she got one here. She will be given first dose of Augmentin and Lortab for pain. Patient was given wound care. X-ray was negative for acute disease. Pressure. Wound care was endorsed. Given prescription for Augmentin, Lortab, diclofenac sodium. Apply ice to the wound. Watch for signs of infections. See ED for worsening symptoms. Follow with PCP. I do not recommend suture laceration sounds are very small and very superficial as well as well approximated. No puncture wounds and the risk of infection is higher than suturing. Patient understands and agrees. Diagnosis Primary Impression: Dog bite of left hand Qualified Codes: S61.452A - Open bite of left hand, initial encounter; W54.0XXA - Bitten by dog, initial encounter Patient Instructions: General Instructions, Narcotic given in the ED Additional Instructions: Take medications as prescribed. Follow-up with PCP. See ED for any worsening symptoms. Do not drink or drive while taking pain medication. Apply ice or heat as needed for pain Med/Other Pt SpecificInfo: Prescription(s) given, Wound Care Scripts Diclofenac Sodium DR (Diclofenac Sodium DR) 75 Mg Tabdr 75 MG PO BID Y for PAIN SCALE 1 TO 10, #20 TAB 0 Refills Prov: Roscoe Umana MD 11/26/17 Hydrocodone/Acetaminophen (Hydrocodone-Acetamin 5-325 mg) 5 Mg-325 Mg Tablet 1 TAB PO Q6HR Y for PAIN SCALE 1 TO 10, #12 Prov: Roscoe Umana MD 11/26/17 Amoxicillin-Clavulanate (Augmentin) 875-125 Mg Tab 1 TAB PO BID for Infection for 7 Days, #14 TAB 0 Refills Prov: Roscoe Umana MD 11/26/17 Disposition: 01 DISCHARGE HOME Condition: Stable Nacho Estrada Nov 26, 2017 10:23
== END 2017-11-26 10:46 | disposition home or self-care (01) ==
LOC: NEPK 09:29
DX: S61.452A Open bite of left hand, initial encounter (principal); W54.0XXA Bitten by dog, initial encounter; Z23 Encounter for immunization
CPT/HCPCS: 73130; 90471; 90714